=== PATIENT | female | born 1950 | race Two or more races ===

== ENCOUNTER 2016-05-25 07:05 | Emergency (ER) | payer MEDICARE ==
[~2016-05-25] VITALS: Ht 162.6 cm; Wt 83.0 kg
[2016-05-25 07:16] VITALS: BP 117/58; PULSE 75; RESP 16; TEMP 98.1; O2SAT 98
[2016-05-25 07:17] VITALS: BP 117/58; PULSE 75; RESP 16; TEMP 98.1; O2SAT 98
--- NOTE | 2016-05-25 07:27 | PD ---
HPI Chief Complaint: Injury Time Seen by Provider: 07:19 Travel History International Travel<30 days: No (unknown) Contact w/Intl Traveler<30days: No (unknown) History of Present Illness HPI 65yo F with no significant PMH presents to the ED with c/o right ankle pain s/p twisting it yesterday morning. Pt states she was wearing platform shoes and twist her ankle while walking. States she has some pain and swelling in lateral malleolus. Denies any fall or any other trauma. Denies any fever, chest pain, sob, n/v, abdominal pain, focal weakness or numbness. Took aspirin/ acetaminophen for pain with some relief. Pt is able to ambulate on her right leg after twisting it. PFSH Social History Tobacco Use: No Allergies-Medications (Allergen,Severity, Reaction): Coded Allergies: No Known Allergies (Unverified , 05/25/16) Reported Meds & Prescriptions Reported Meds & Active Scripts Active Ibuprofen 400 Mg Tab 400 Mg PO Q8H PRN Review of Systems Except as stated in HPI: all other systems reviewed are Neg Physical Exam Narrative GENERAL: 65yo F not in distress. SKIN: Warm and dry. HEAD: Atraumatic. Normocephalic. EYES: Pupils equal and round. No scleral icterus. No injection or drainage. CARDIOVASCULAR: Regular rate and rhythm. No murmur appreciated. RESPIRATORY: No accessory muscle use. Clear to auscultation. Breath sounds equal bilaterally. GASTROINTESTINAL: Abdomen soft, non-tender, nondistended. No rebound tenderness or guarding. MUSCULOSKELETAL: Right ankle: +TTP lateral malleolus. Mild edema. DP 2+. Sensation intact. FROM right ankle. No ttp right knee. FROM right knee. NEUROLOGICAL: Awake and alert. No obvious cranial nerve deficits. Motor grossly within normal limits. Normal speech. PSYCHIATRIC: Appropriate mood and affect; insight and judgment normal. Data Data Last Documented VS Vital Signs Date Time Temp Pulse Resp B/P Pulse Ox O2 Delivery O2 Flow Rate FiO2 05/25/16 07:17 98.1 75 16 117/58 98 05/25/16 07:16 Room Air Orders Ankle, Limited (Ap&Lat) (05/25/16 ) Ibuprofen (Motrin) (05/25/16 08:00) Splint Or Brace Apply/Monitor (05/25/16 08:28) [facility] Medical Decision Making Medical Screen Exam Complete: Yes Emergency Medical Condition: Yes Interpretation(s) Last Impressions Ankle X-Ray 05/25/16 0000 Signed Impressions: Service Date/Time: Wednesday, May 25, 2016 07:33 - CONCLUSION: Soft tissue swelling without fracture. Venancio Beltran MD Differential Diagnosis Ankle sprain vs. ankle fracture (less likely) Narrative Course 65yo F with right ankle pain s/p twisting it yesterday. Pt able to ambulate on it afterwards. Xray right ankle showed soft tissue swelling without fracture. Pt given ibuprofen with improvement of pain. Encourage pt to rest, ice, compress and elevate. REILLY bandage placed for comfort. Return precautions given. Diagnosis Primary Impression: Ankle sprain Qualified Code: S93.401A - Sprain of right ankle, unspecified ligament, initial encounter Patient Instructions: General Instructions Departure Forms: Tests/Procedures Additional Instructions: Please follow up with your PMD in 3-7 days. Return to the ED if symptoms worsen. Med/Other Pt SpecificInfo: Prescription(s) given Scripts Ibuprofen 400 Mg [id number] Mg PO Q8H PRN (PAIN SCALE 1 TO 4) #20 TAB Ref 0 Prov:Lizet Reno DO 05/25/16 Disposition: 01 DISCHARGE HOME Condition: Stable Lizet Reno DO May 25, 2016 07:27
--- NOTE | 2016-05-25 07:48 | RADHPO ---
EXAM DATE/TIME: 05/25/2016 07:33 [facility] COMPARISON: No previous studies available for comparison. INDICATIONS : Twisted right ankle, has pain with weight bearing MEDICAL HISTORY : None. SURGICAL HISTORY : None. ENCOUNTER: Initial ACUITY: 2 days PAIN SCORE: 8/10 LOCATION: Right ankle FINDINGS: There is lateral soft tissue swelling. Bones of the right ankle are intact and normally aligned. No r adiopaque foreign body. CONCLUSION: Soft tissue swelling without fracture. Venancio Beltran MD on May 25, 2016 at 7:46 Board Certified Radiologist. This report was verified electronically.
[2016-05-25] MEDS ORDERED: IBUPROFEN 400 MG TAB PO ONE (08:00)
[2016-05-25] MEDS ORDERED: IBUP400T20 PO (08:28)
== END 2016-05-25 08:41 | disposition home or self-care (01) ==
LOC: PHED 07:05
DX: S93.401A Sprain of unspecified ligament of right ankle, initial encounter (principal); X50.1XXA Overexertion from prolonged static or awkward postures, initial encounter; Y93.01 Activity, walking, marching and hiking
CPT/HCPCS: 73600; 99283

== ENCOUNTER 2017-03-08 15:28 | Emergency (ER) | payer MEDICARE ==
[~2017-03-08] VITALS: Ht 160 cm; Wt 78.0 kg
[~2017-03-08 15:28] MED LIST: IBUP1TAB5 PO
[2017-03-08 15:30] VITALS: BP 126/72; PULSE 71; RESP 14; TEMP 98.8; O2SAT 97
--- NOTE | 2017-03-08 15:48 | PD ---
HPI Chief Complaint: Cardiac Complaint Time Seen by Provider: 15:40 Travel History International Travel<30 days: No Contact w/Intl Traveler<30days: No Traveled to known affect area: No History of Present Illness HPI The patient was seen and examined in the presence of the nurse. This patient complains of palpitations. She has a sensation of fluttering heartbeat. She does not have any chest pain or pressure or tightness or heaviness. Severity is mild to moderate. She's been having this on and off for 4 months now. She follows with Dr. Zimmerman who did a Holter monitor on her that the patient reports was normal. It sounds like they're planning to do a prolonged monitoring in the near future. She has no presyncopal symptoms. No alleviating factors. No exacerbating factors. PFSH Past Medical History Asthma: Yes Cardiovascular Problems: Yes GERD: Yes Respiratory: Yes Past Surgical History Hysterectomy: Yes Social History Alcohol Use: Yes (OCC WINE) Tobacco Use: No Substance Use: No Allergies-Medications (Allergen,Severity, Reaction): Coded Allergies: No Known Allergies (Unverified Adverse Reaction, Unknown, 03/08/17) Reported Meds & Prescriptions Reported Meds & Active Scripts Active Ibuprofen 400 Mg Tab 400 Mg PO Q8H PRN Review of Systems General / Constitutional: No: Fever Eyes: No: Visual changes HENT: No: Headaches Cardiovascular: Positive: Palpitations, No: Chest Pain or Discomfort Respiratory: No: Shortness of Breath Gastrointestinal: No: Abdominal Pain Genitourinary: No: Dysuria Musculoskeletal: No: Pain Skin: No Rash Neurologic: No: Weakness Psychiatric: No: Depression Endocrine: No: Polydipsia Hematologic/Lymphatic: No: Easy Bruising Physical Exam Narrative GENERAL: Well-nourished, well-developed patient in no apparent distress. SKIN: Focused skin assessment reveals no rash and nodules. Skin is Warm and dry. HEAD: Atraumatic. Normocephalic. EYES: Pupils equal and round. No scleral icterus. No injection or drainage. ENT: No nasal bleeding or discharge. Mucous membranes pink and moist. NECK: Trachea midline. No JVD. CARDIOVASCULAR: Regular rate and rhythm. No murmur appreciated. RESPIRATORY: No accessory muscle use. Clear to auscultation. Breath sounds equal bilaterally. GASTROINTESTINAL: Abdomen soft, non-tender, nondistended. Hepatic and splenic margins not palpable. MUSCULOSKELETAL: No obvious deformities. No clubbing. No cyanosis. No edema. NEUROLOGICAL: Awake and alert. No obvious cranial nerve deficits. Motor grossly within normal limits. Normal speech. PSYCHIATRIC: Appropriate mood and affect; insight and judgment normal. Data Data Last Documented VS Vital Signs Date Time Temp Pulse Resp B/P (MAP) Pulse Ox O2 Delivery O2 Flow Rate FiO2 03/08/17 15:41 73 18 96 Room Air 03/08/17 15:30 98.8 126/72 (90) Orders Orders Iv Access Insert/Monitor (03/08/17 15:45) Complete Blood Count With Diff (03/08/17 15:45) Basic Metabolic Panel (Bmp) (03/08/17 15:45) Electrocardiogram (03/08/17 ) Student Support Services Director / Telemetry CARYL.Q8H (03/08/17 15:45) Labs Laboratory Tests Test 03/08/17 15:45 White Blood Count 7.9 TH/MM3 Red Blood Count 4.60 MIL/MM3 Hemoglobin 13.2 GM/DL Hematocrit 39.7 % Mean Corpuscular Volume 86.4 FL Mean Corpuscular Hemoglobin 28.6 PG Mean Corpuscular Hemoglobin Concent 33.1 % Red Cell Distribution Width 13.6 % Platelet Count 197 TH/MM3 Mean Platelet Volume 8.6 FL Neutrophils (%) (Auto) 65.3 % Lymphocytes (%) (Auto) 23.0 % Monocytes (%) (Auto) 6.3 % Eosinophils (%) (Auto) 4.9 % Basophils (%) (Auto) 0.5 % Neutrophils # (Auto) 5.2 TH/MM3 Lymphocytes # (Auto) 1.8 TH/MM3 Monocytes # (Auto) 0.5 TH/MM3 Eosinophils # (Auto) 0.4 TH/MM3 Basophils # (Auto) 0.0 TH/MM3 CBC Comment DIFF FINAL Differential Comment Blood Urea Nitrogen 17 MG/DL Creatinine 0.90 MG/DL Random Glucose 75 MG/DL Calcium Level 8.6 MG/DL Sodium Level 140 MEQ/L Potassium Level 4.1 MEQ/L Chloride Level 106 MEQ/L Carbon Dioxide Level 28.9 MEQ/L Anion Gap 5 MEQ/L Estimat Glomerular Filtration Rate 63 ML/MIN [facility] Medical Decision Making Medical Screen Exam Complete: Yes Emergency Medical Condition: Yes Medical Record Reviewed: Yes Differential Diagnosis Palpitations, anxiety, SVT, A. fib Narrative Course I have reviewed the patient's electronic medical record. IV placed CBC is normal Metabolic profile is normal I reviewed her EKG which shows sinus rhythm. There is no ectopy at all Extended cardiac monitoring reveals sinus rhythm without ectopy I recheck she is doing well. Workup here is negative. 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
[2017-03-08 16:07] LABS: AUTOMATED NEUTROPHIL # 5.2 TH/MM3 (1.8-7.7); BASOPHIL % 0.5 % (0.0-2.0); EOSINOPHIL # 0.4 TH/MM3 (0-0.4); EOSINOPHIL % 4.9 % (0.0-4.0); HEMATOCRIT 39.7 % (35.0-46.0); HEMO FLAGS DIFF FINAL; LYMPHOCYTE # 1.8 TH/MM3 (1.0-4.8); MEAN CELL VOLUME 86.4 FL (80.0-100.0); MEAN CORPUSCULAR HEMOGLOBIN 28.6 PG (27.0-34.0); MEAN CORPUSCULAR HGB CONC 33.1 % (32.0-36.0); MONO % 6.3 % (0.0-8.0); NEUT % 65.3 % (16.0-70.0); PLATELET COUNT 197 TH/MM3 (150-450); RED CELL DISTRIBUTION WIDTH 13.6 % (11.6-17.2); WHITE BLOOD COUNT 7.9 TH/MM3 (4.0-11.0)
[2017-03-08 16:26] LABS: BICARBONATE 28.9 MEQ/L (21.0-32.0); POTASSIUM 4.1 MEQ/L (3.5-5.1)
--- NOTE | 2017-03-09 17:41 | EKG ---
Date Performed: 03/08/2017 Time Performed: 15:45:01 PTAGE: 66 years EKG: Sinus rhythm INFERIOR MYOCARDIAL INFARCTION ABNORMAL ECG NO PREVIOUS TRACING DOCTOR: Terrell Parker Interpretating Date/Time 03/09/2017 17:40:26
== END 2017-03-08 18:04 | disposition home or self-care (01) ==
LOC: NEPE 15:28
DX: R00.2 Palpitations (principal); J45.909 Unspecified asthma, uncomplicated; K21.9 Gastro-esophageal reflux disease without esophagitis; I25.2 Old myocardial infarction; R94.31 Abnormal electrocardiogram [ECG] [EKG]
CPT/HCPCS: 80048; 85025; 93005; 99284